=== PATIENT | female | born 1970 | race African-American/Black ===

== ENCOUNTER 2017-05-08 09:02 | Emergency (ER) | payer BC ==
--- NOTE | 2017-05-08 09:23 | ED.ADGEN ---
Adult General Chief Complaint Chief Complaint: GI PROBLEM HPI HPI Patient is a 47 year old [woman, history of adenocarcinoma of the colon, who presents to the emergency department via EMS as a cardiac arrest. Per EMS report , they were called to the patient's home, with a report of unresponsiveness. When they arrived they found the patient seated in the bathroom on the commode. It appeared the parent patient had a bowel movement. They stated that they move the patient from the toilet to the stretcher, at that time noted the patient was in full cardiac arrest, CPR was initiated and an airway established. Per EMS , ACLS was performed in the home for approximately 30 minutes, with a total of 5 rounds of epinephrine administered, initial rhythm they state with asystole, patient was then noted to be in a PEA, that was bradycardic. Patient was also noted to be experiencing significant GI bleeding, with large amounts of dark blood and possible feculent material from the oropharynx. Accu-Chek was 85. Patient was transported after approximately 30 minutes of ACLS in the field. Review of Systems Review of Systems Unable to us assess secondary to clinical condition. Physical Exam Physical Exam Constitutional: Well developed, well nourished, pale, in cardiopulmonary arrest. HENT: Normocephalic, atraumatic, bilateral external ears normal, oropharynx moist, patient with LMA in place, large amounts of dark blood and possible feculent material from mouth, nose normal. [] Eyes: Pupils are 3 mm bilaterally and nonreactive, conjunctiva is normal. Neck: Normal range of motion, supple, no stridor. [] Cardiovascular: Patient with no organized cardiac activity noted on ultrasound, noted to be in PEA, bradycardic on the monitor. Good waveform noted with chest compressions. Lungs & Thorax: No spontaneous respirations, good chest rise with bag ventilations. Abdomen: Patient with large well-healed surgical incisions over abdomen, no bowel sounds, abdomen is flat. [] Skin: Warm, dry, no erythema, no rash. [] Back: No trauma some other deformities appreciated. Extremities: No tenderness, no cyanosis, no clubbing, ROM intact, no edema. [] Neurologic: Patient with a GCS of 3, pupils are 3 mm bilaterally and nonreactive. Psychologic: Unresponsive Current Patient Data Lab Values Laboratory Tests Test 05/08/17 09:07 05/08/17 09:11 POC Troponin I 0.05 ng/ml (<0.08) POC Hemoglobin 6.5 g/dL (12-15) L POC Hematocrit 19 % (36-40) L POC Sodium 129 mmol/L (135-145) L POC Potassium 8.5 mmol/L (3.5-5.0) H POC Chloride 105 mmol/L (98-110) POC Total CO2 14 mmol/L (23-32) L Anion Gap 20 mmol/L (6-14) H POC Blood Urea Nitrogen 53 mg/dL (8-26) H POC Creatinine 1.6 mg/dL (0.5-1.4) H Glucose Level 70 mg/dL (70-99) POC Ionized Calcium (Jax) 1.01 mmol/L (1.13-1.32) L Laboratory Tests 05/08/17 09:11 EKG EKG Rhythm strip: Bradycardic PEA [] Radiology/Procedures Radiology/Procedures Not indicated Course & Med Decision Making Course & Med Decision Making Pertinent Labs and Imaging studies reviewed. (See chart for details) At time of arrival in the emergency department, patient's downtime has been approximately 40 minutes, with 35 minutes of CPR in progress. Patient remains in bradycardic PEA and the monitor, ultrasounds reveals nor denies cardiac activity. Initial round of epinephrine was given, repeat ultrasound performed a rhythm check without change, no pulsatile noted, patient also received bicarbonate. Additional IV access established, i-STAT obtained. After 2 additional rounds of CPR, with epinephrine given once in the ED as stated, bicarbonate, without change in clinical condition, the resuscitative efforts were discontinued due to futility at 0803. Patient's i-STAT noted to have a hemoglobin of 6.5, creatinine of 1.6, blood urea nitrogen 53, with a glucose of 70, sodium 129, and a profound hyperkalemia with potassium 8.5. Consistent with patient's prolonged downtime. Specimen had no evidence of hemolysis. Pastoral care was called to the emergency department, patient's family is en route at this time. I did speak to the patient's , Mr. Issa, and informed him of his 's , with pastoral care present. Patient's family at bedside. I did speak with Dr. Amari Thornton, the patient's oncologist, and informed him of the patient's unfortunate code and . He will complete the certificate. Dragon Disclaimer Dragon Disclaimer This electronic medical record was generated, in whole or in part, using a voice recognition dictation system. Departure Disposition: 20 Condition: Critical Care Time Critical care time was 15 minutes exclusive of procedures. EDILIA BECKETT DO May 08, 2017 09:23
[2017-05-08 09:26] LABS: POTASSIUM ISTAT 8.5 mmol/L (3.5-5.0)
[2017-05-08] MEDS ORDERED: EPINEPHrine SYRINGE 1 MG/10 ML SYRINGE ONE (17:28)
[2017-05-08] MEDS ORDERED: SODIUM BICARB ADULT 8.4% 50 MEQ/50 ML DISP.SYRIN. ONE (17:28)
== END 2017-05-08 11:43 | disposition expired ==
LOC: ER 09:02
DX: I46.9 Cardiac arrest, cause unspecified (principal); Z85.038 Personal history of other malignant neoplasm of large intestine
CPT/HCPCS: 80047; 84484; 92950; 99285; J0171